=== PATIENT | male | born 1935 | race Caucasian/White ===

== ENCOUNTER 2019-07-23 09:27 | Emergency (ER) | payer MEDICARE, OTHER ==
[~2019-07-23] VITALS: Ht 188 cm; Wt 81.7 kg
[~2019-07-23 09:27] MED LIST: ASPI325 PO; ATOR40TA PO; CALGLU500; CENTRUM SILVER1 EAC2 PO; CEPH500 PO; CHOL10002 PO; CLOP75; CLOP75 PO; ERGO400; ESOM20; EYE; FISH1000; FOSI10; FOSI10 PO; HYDCHL12.5; LISI5 PO; MULVITMINF; MULVITMINF PO; NEBI5 PO; NEW CHOLESTEROL MED; NIFE30ER PO; OMEG1CAP30 PO; OMEGA-3 + D SO1 EACH PO; PANT40 PO; PENVK500 PO; PRED10 PO; PROACE100 PO; Prinivil10 MG PO; ROSU5 PO; RXPROACE PO; SIMV40; TAMS.4ER PO
[2019-07-23] MEDS ORDERED: Voltaren100 GM TOP (11:11)
== END 2019-07-23 11:30 | disposition home or self-care (01) ==
LOC: ER 09:27
DX: M17.0 Bilateral primary osteoarthritis of knee (principal); I10 Essential (primary) hypertension; Z79.82 Long term (current) use of aspirin; Z79.899 Other long term (current) drug therapy; Z87.891 Personal history of nicotine dependence
CPT/HCPCS: 73562-LT; 73562-RT; 99283-25

== ENCOUNTER 2019-09-03 08:43 | Emergency (ER) | payer MEDICARE, OTHER ==
[~2019-09-03] VITALS: Ht 188 cm; Wt 81.7 kg
[~2019-09-03 08:43] MED LIST changes: +Voltaren100 GM TOP
[2019-09-03] MEDS ORDERED: Voltaren100 GM TOP (10:15)
== END 2019-09-03 10:24 | disposition home or self-care (01) ==
LOC: ER 08:43
DX: M17.0 Bilateral primary osteoarthritis of knee (principal); I10 Essential (primary) hypertension; Z79.899 Other long term (current) drug therapy; Z79.01 Long term (current) use of anticoagulants; Z79.82 Long term (current) use of aspirin; Z87.891 Personal history of nicotine dependence
CPT/HCPCS: 73564; 99283-25